=== PATIENT | male | born 1980 | race American Indian/Alaskan Native ===

== ENCOUNTER 2020-12-17 21:51 | Emergency (ER) | payer MEDICAID ==
[2020-12-17] MEDS ORDERED: TETANUS,DIPH,PERTUSS(ACELL) VACCINE 0.5 ML SYRINGE IM ONE (22:02)
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
[2020-12-17] MEDS ORDERED: IBUPROFEN 800 MG TAB PO ONE (22:34)
[2020-12-17 23:25] VITALS: BP 119/79
== END 2020-12-17 23:18 | disposition home or self-care (01) ==
LOC: ED 21:51
DX: S71.032A Puncture wound without foreign body, left hip, initial encounter (principal); Z88.1 Allergy status to other antibiotic agents; W34.09XA Accidental discharge from other specified firearms, initial encounter; Y93.89 Activity, other specified; Y92.89 Other specified places as the place of occurrence of the external cause; Y99.8 Other external cause status
CPT/HCPCS: 72170; 90471; 90715; 99283

== ENCOUNTER 2021-06-03 11:47 | Emergency (ER) | payer MEDICAID ==
[2021-06-03 13:03] VITALS: BP 136/94
[2021-06-03] MEDS ORDERED: HYDROcodone/ACETAMINOPHEN 10-325MG TAB PO ONE (16:50)
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
== END 2021-06-03 20:02 | disposition home or self-care (01) ==
LOC: ED 11:47
DX: L02.411 Cutaneous abscess of right axilla (principal); Z76.0 Encounter for issue of repeat prescription; E11.9 Type 2 diabetes mellitus without complications
CPT/HCPCS: 82962; 99282

== ENCOUNTER 2021-10-25 14:33 | Emergency (ER) | payer MEDICAID ==
--- NOTE | 2021-10-25 23:47 | Emergency Department Report ---
ED General Adult HPI - General Chief complaint: Skin/Abscess/Foreign Body Stated complaint: ABSCESS ON FACE/RASH ON GENITALS/DIABETES Time Seen by Provider: 10/25/21 20:52 Source: patient Mode of arrival: Ambulatory Limitations: No Limitations - History of Present Illness Initial comments: 41-year-old Bhut[place] male presents emerged department complaining of having an abscess to his left face over the past several days that he was initially evaluated on about 4 5 days ago but has not yet followed up to have it incised and drained by the specialist due to not being compatible with his current work schedule so came to emergency department seeking reevaluation and possible abscess in evacuation. Reports no fever, chills, sweats. No neck pain no chest pain Severity scale (0 -10): 3 Consistency: constant Improves with: none Worsens with: none Associated Symptoms: denies: denies other symptoms, chest pain, cough, loss of appetite, malaise, syncope - Related Data Previous Rx's Medication Instructions Recorded Last Taken Type Acetaminophen/Codeine [Tylenol 1 tab PO Q6H PRN 3 Days #12 tab 06/03/21 Unknown Rx /Codeine # 3 tab] Insulin NPH Human Isophane 100 unit SQ AC 30 Days #1 pen 06/03/21 Unknown Rx [Novolin N Flexpen] Sulfamethoxazole/Trimethoprim 1 each PO BID 10 Days #20 tab 06/03/21 Unknown Rx [Bactrim DS TAB] Azithromycin [Zithromax TAB] 1,000 mg PO QDAY #2 10/25/21 Unknown Rx clindamycin HCL [Clindamycin cap] 75 mg PO TID #20 cap 10/25/21 Unknown Rx Allergies Allergy/AdvReac Type Severity Reaction Status Date / Time cephalexin [From Keflex] Allergy Itching Verified 10/25/21 16:48 ED Review of Systems ROS: Stated complaint: ABSCESS ON FACE/RASH ON GENITALS/DIABETES Other details as noted in HPI Comment: All other systems reviewed and negative ED Past Medical Hx - Past Medical History Hx Diabetes: Yes - Social History Smoking Status: Never Smoker - Medications Home Medications: Home Medications Medication Instructions Recorded Confirmed Last Taken Type Acetaminophen/Codeine [Tylenol 1 tab PO Q6H PRN 3 Days #12 tab 06/03/21 Unknown Rx /Codeine # 3 tab] Insulin NPH Human Isophane 100 unit SQ AC 30 Days #1 pen 06/03/21 Unknown Rx [Novolin N Flexpen] Sulfamethoxazole/Trimethoprim 1 each PO BID 10 Days #20 tab 06/03/21 Unknown Rx [Bactrim DS TAB] Azithromycin [Zithromax TAB] 1,000 mg PO QDAY #2 10/25/21 Unknown Rx clindamycin HCL [Clindamycin cap] 75 mg PO TID #20 cap 10/25/21 Unknown Rx ED Physical Exam - General Limitations: No Limitations General appearance: alert, in no apparent distress - Head Head exam: Present: atraumatic, normocephalic, other (Abscess to left cheek around the zygomatic arch region no lymphangitis. No involving the orbit or periorbital region.) - Eye Eye exam: Present: normal appearance, PERRL Pupils: Present: normal accommodation - ENT ENT exam: Present: normal exam, normal orophraynx, mucous membranes moist - Neck Neck exam: Present: normal inspection, full ROM - Respiratory Respiratory exam: Present: normal lung sounds bilaterally. Absent: respiratory distress - Cardiovascular Cardiovascular Exam: Present: regular rate, normal rhythm. Absent: systolic murmur, diastolic murmur, rubs, gallop - GI/Abdominal GI/Abdominal exam: Present: soft, normal bowel sounds - Rectal Rectal exam: Present: deferred - External exam: Present: other (Centralized lesion to the penis shaft at the base with lymphadenopathy to the left inguinal lymph node. No discharge appreciated. No cellulitis. No testicular pain or swelling) - Extremities Exam Extremities exam: Present: normal inspection, normal capillary refill - Back Exam Back exam: Present: normal inspection. Absent: CVA tenderness (R), CVA tenderness (L) - Neurological Exam Neurological exam: Present: alert, oriented X3, CN II-XII intact, normal gait - Psychiatric Psychiatric exam: Present: normal affect, normal mood - Skin Skin exam: Present: warm, dry, intact, normal color. Absent: rash ED Course Vital Signs 10/25/21 10/25/21 10/26/21 16:43 21:33 01:07 Temperature 98.8 F Pulse Rate 115 H 110 H 108 H Respiratory 18 14 12 Rate Blood Pressure 136/90 132/87 137/88 [Right] O2 Sat by Pulse 98 97 100 Oximetry Critical care attestation.: If time is entered above; I have spent that time in minutes in the direct care of this critically ill patient, excluding procedure time. 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 Chancroid is a bacterial infection caused by Haemophilus ducreyi. It is spread by sexual contact and results in genital ulcers. Chancroid is a reportable genital ulcer condition that is rarely seen in [place]. When infection does occur, it is usually associated with sporadic outbreaks. Chancroid, as well as genital herpes and syphilis, is a risk factor in the transmission of HIV infection. Chancroid lesions may be difficult to distinguish from ulcers caused by genital herpes or syphilis. A physician must therefore diagnose the infection by excluding other diseases with similar symptoms. The combination of a painful genital ulcer and tender suppurative inguinal adenopathy suggests the diagnosis of chancroid. A probable diagnosis of chancroid, for both clinical and surveillance purposes, can be made if all of the following criteria are met: 1) the patient has one or more painful genital ulcers; 2) the patient has no evidence of T. pallidum infection by darkfield examination of ulcer exudate or by a serologic test for syphilis performed at least 7 days after onset of ulcers; 3) the clinical presentation, appearance of genital ulcers and, if present, regional lymphadenopathy are typical for chancroid; and 4) a test for HSV performed on the ulcer exudate is negative. A definitive diagnosis of chancroid requires the identification of H. ducreyi on special culture media that is not widely available from commercial sources; even when these media are used, sensitivity is less than 80 percent. No FDAcleared PCR test for H. ducreyi is available in the [place], but such testing can be performed by clinical laboratories that have developed their own PCR test and have conducted a CLIA verification study. Chancroid can be treated effectively with one of several antibiotics. Successful treatment for chancroid cures the infection, resolves the clinical symptoms, and prevents transmission to others. Patients should be re-examined 37 days after initiation of therapy. If treatment is successful, ulcers usually improve symptomatically within 3 days and objectively within 7 days after therapy. If no clinical improvement is evident, the clinician must consider whether 1) the diagnosis is correct; 2) the patient is coinfected with another STD; 3) the patient is infected with HIV; 4) the treatment was not used as instructed; or 5) the H. ducreyi strain causing the infection is resistant to the prescribed antimicrobial. Prescriptions: clindamycin HCL [Clindamycin cap] 75 mg PO TID #20 cap Azithromycin [Zithromax TAB] 1,000 mg PO QDAY #2 Referrals: [facility] [Provider Group] - 3-5 Days MIGUEL A SAUER MD [Staff Physician] - 3-5 Days NGUYỄN ONEILL PA [Referring] - 3-5 Days JIGNA MUÑOZ [Referring] - 3-5 Days DIA MORALES MD [Referring] - 3-5 Days TRAVIS BISHOP MD [Referring] - 3-5 Days
[2021-10-26 01:14] VITALS: BP 137/88
== END 2021-10-26 01:17 | disposition home or self-care (01) ==
LOC: ED 14:33
DX: L02.01 Cutaneous abscess of face (principal); A57 Chancroid; E11.9 Type 2 diabetes mellitus without complications; Z91.09 Other allergy status, other than to drugs and biological substances
CPT/HCPCS: 82962; 99282